=== PATIENT | male | born 1950 ===

== ENCOUNTER → 2021-11-21 08:26 | Outpatient (CLI) | payer OTHER, SELFPAY ==
--- NOTE | ~2021-11-21 | MR_ITS ---
EXAMINATION: MR shoulder RT wo con DATE: 11/21/2021 09:30 INDICATION: Right shoulder pain. Rotator cuff disorder. TECHNIQUE: Magnetic resonance imaging (MRI) of the right shoulder was performed without intravenous c ontrast. Sequences included axial PD-weighted FS FSE, coronal oblique PD-weighted FS FSE, coronal obl ique T2-weighted FS FSE, sagittal PD-weighted FS FSE, and sagittal T1-weighted SE. COMPARISON: None. FINDINGS: Coracoacromial arch: The acromion undersurface is curved in morphology (type II). Moderate-sized anterior subacromial spur at the acromial insertion of the thickened coracoacromial ligament. Severe acromioclavicular osteoar thritis. Rotator cuff: Large full-thickness tear involving essentially the entire supraspinatus and infraspinatus tendons. T he medial tear margin is retracted medially to mid point between the level of the apex of the humeral head and the rim of the glenoid. There is residual tendon material attached along the greater tubero sity footplate with irregular tear margin extending up to 2.5 similar medially from the footplate. Th ere is approximately 2 cm fluid-filled defect between the medial and lateral margins of the tear. Mod erate tendinopathy extending up to 3 cm medially from the medial tear margin. The teres minor tendon is normal. Mild subscapularis tendinopathy without discrete tear. There is mild medial retraction of both the supraspinatus and infraspinatus muscle bellies without significant fatty atrophy. There is s ome feathery muscular edema within the infraspinatus muscle belly. Both findings suggest the full-thi ckness tear is relatively recent. Biceps tendon, glenoid labrum and glenohumeral cartilage: Moderate tendinopathy of the long head of the biceps tendon. There is a longitudinal split tearing of the tendon along with relative attenuation intra-articular portion of the tendon consistent with add itional partial thickness tear. The superior and posterior glenoid labrum are relatively small subtle tear at the superior glenoid labrum. There is nonuniform partial thickness cartilage loss with randi h chondral surface at the posterior superior glenoid. Fluid: Small to moderate-sized glenohumeral joint effusion which extends to the full-thickness rotator cuff tear to indicate with the subacromial/subdeltoid bursa. No loose osteochondral bodies. Bones: Normal marrow signal with no edema, fracture or abnormal marrow replacing process. IMPRESSION: 1. Large full-thickness tear along the critical zone of the supraspinatus and infraspinatus tendons. 2. Mild glenohumeral osteoarthritis with tear of the superior glenoid labrum. 3. Moderate tendinopathy with both partial-thickness and longitudinal split tearing of the intra-chuy cular portion of the tendon. 4. Severe acromioclavicular osteoarthritis. Reviewed, dictated and finalized at location A. IMPRESSION: 1. Large full-thickness tear along the critical zone of the supraspinatus and i nfraspinatus tendons. 2. Mild glenohumeral osteoarthritis with tear of the superior glenoid labrum. 3. Moderate tendinopathy with both partial-thickness and longitudinal split tea ring of the intra-articular portion of the tendon. 4. Severe acromioclavicular osteoarthritis.
== END ==
PROVIDERS: PCP Orthopaedic Surgery; Visit Provider Orthopaedic Surgery
DX: M19.011 Primary osteoarthritis, right shoulder (principal)
CPT/HCPCS: 73221